=== PATIENT | female | born 1985 | race Caucasian/White ===

== ENCOUNTER 2018-08-04 18:23 | Emergency (ER) | payer OTHER ==
[2018-08-04 18:44] VITALS: BP 115/83
[2018-08-04] MEDS ORDERED: predniSONE 20 MG TABLET PO STA (18:56)
--- NOTE | 2018-08-04 19:36 | ED Physician Documentation ---
History of Present Illness - Stated complaint Stated Complaint: SWOLLEN TONGUE - Chief complaint Chief Complaint: Allergic Rx - History obtained from History obtained from: Patient - History of Present Illness Timing: How many hours ago (2) Pain level max: 0 Pain level now: 0 - Additonal information Additional information: 33-year-old female presents to the emergency department with tongue swelling after eating honey tonight. States took 2 Zyrtec and the swelling has now decreased to normal. No itching. No difficulty breathing or trouble swallowing. Has not had previous allergic reactions like this. Is not , breast-feeding or trying to become . Review of Systems Constitutional: denies: Fever, Chills Respiratory: denies: Cough GI: denies: Vomiting, Diarrhea Skin: denies: Rash Musculoskeletal: denies: Neck pain, Back pain Neurologic: denies: Headache PD PAST MEDICAL HISTORY - Past Medical History Past Medical History: No - Past Surgical History Past Surgical History: No - Present Medications Home Medications: Ambulatory Orders Medication Instructions Recorded Confirmed Cetirizine [ZyrTEC] 08/04/18 Fexofenadine HCl 08/04/18 Topiramate 08/04/18 - Allergies Allergies/Adverse Reactions: Allergies Allergy/AdvReac Type Severity Reaction Status Date / Time azithromycin Allergy Anaphylaxis Verified 08/04/18 18:46 - Living Situation Living Situation: reports: With family Living Arrangement: reports: At home - Social History Does the pt smoke?: No Does the pt have substance abuse?: No PD ED PE NORMAL - Vitals Vital signs reviewed: Yes - General General: Alert and oriented X 3, No acute distress, Well developed/nourished - HEENT HEENT: PERRL, Moist mucous membranes, Pharynx benign, Other (No swelling. Uvula midline. Normal phonation. No trismus) - Neck Neck: Supple, no meningeal sign - Cardiac Cardiac: RRR, Strong equal pulses - Respiratory Respiratory: No respiratory distress, Clear bilaterally - Abdomen Abdomen: Soft, Non tender, Non distended - Derm Derm: Warm and dry, No rash - Neuro Neuro: Alert and oriented X 3 - Psych Psych: Normal mood, Normal affect Results - Vitals Vitals: Vital Signs - 24 hr 08/04/18 18:37 Temperature 37.0 C Heart Rate 81 Respiratory 16 Rate Blood Pressure 115/83 H O2 Saturation 99 Oxygen O2 Source Room air PD MEDICAL DECISION MAKING - ED course Complexity details: considered differential, d/w patient ED course: 33-year-old female with what appears to be a resolving allergic reaction at this time. Given prednisone here. Will continue Zyrtec as needed at home. She is well-appearing, nontoxic. Afebrile. No wheezing or respiratory distress. Patient counseled regarding signs and symptoms for which I believe and urgent re-evaluation would be necessary. Patient with good understanding of and agreement to plan and is comfortable going home at this time This document was made in part using voice recognition software. While efforts are made to proofread this document, sound alike and grammatical errors may occur. Departure - Departure Disposition: 01 Home, Self Care Clinical Impression: Allergic reaction Qualifiers: Encounter type: initial encounter Qualified Code(s): T78.40XA - Allergy, unspecified, initial encounter Condition: Good Instructions: ED Allergic Reaction Local Other Follow-Up: CANDELARIO ROJAS PA-C [Primary Care Provider] - Within 1 week Comments: Return if you worsen. You can take Benadryl or Zyrtec as needed for swelling.
== END 2018-08-04 19:57 | disposition home or self-care (01) ==
LOC: ED 18:23
DX: T78.40XA Allergy, unspecified, initial encounter (principal); X58.XXXA Exposure to other specified factors, initial encounter
CPT/HCPCS: 99283; J7512

== ENCOUNTER 2018-10-31 16:42 | Emergency (ER) | payer OTHER ==
[2018-10-31 19:47] VITALS: BP 123/81
--- NOTE | 2018-10-31 19:51 | ED Physician Documentation ---
PD HPI FEMALE - Stated complaint Stated Complaint: FEMALE - Chief complaint Chief Complaint: Wound - History obtained from History obtained from: Patient - History of Present Illness Timing - onset: How many days ago (3) Timing - duration: Days (3) Timing - details: Gradual onset Associated symptoms: Vaginal pain, Genital sore/lesion (small bump right side labia for 3 days and small one left labia since yesterday. History of Bartholin cysts with treated with meds most of the time. Only one I&D per patient.). 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 : None HEENT: None Psych: None Musculoskeletal: None Derm: None Other Past Medical History: Bartholin cyst - Past Surgical History Past Surgical History: Yes /TEST FACILITY ENGINEER: section, Tubal ligation - Present Medications Home Medications: Ambulatory Orders Medication Instructions Recorded Confirmed Cetirizine [ZyrTEC] 08/04/18 Fexofenadine HCl 08/04/18 Topiramate 08/04/18 Hydrocodone/Acetaminophen [[place] 1 each PO Q6H PRN #12 tablet 10/31/18 5-325 Tablet] Naproxen 375 mg PO BID #20 tablet 10/31/18 Sulfamethox/Trimeth 800/160 1 each PO BID #14 tablet 10/31/18 [Bactrim Ds 800/160] - Allergies Allergies/Adverse Reactions: Allergies Allergy/AdvReac Type Severity Reaction Status Date / Time azithromycin Allergy Anaphylaxis Verified 10/31/18 17:09 honey Allergy Unknown Verified 10/31/18 17:09 - Social History Does the pt smoke?: No Smoking Status: Never smoker Does the pt drink ETOH?: Yes Does the pt have substance abuse?: No - Immunizations Immunizations are current?: Yes - POLST Patient has POLST: No PD ED PE NORMAL - Vitals Vital signs reviewed: Yes - General General: Alert and oriented X 3, No acute distress, Well developed/nourished - Abdomen Abdomen: Soft, Non tender, Non distended - 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 Right mid labia with about 1 cm rounded tender area, firm with minimal fluctuance, and U/S showing small fluid collection. No noted vag discharge but external exam only was done. ) - Back Back: No CVA TTP Results - Vitals Vitals: Vital Signs - 24 hr 10/31/18 10/31/18 17:06 19:46 Temperature 36.8 C Heart Rate 103 H Respiratory 18 Rate Blood Pressure 124/89 H 123/81 H O2 Saturation 100 Oxygen O2 Source Room air PD MEDICAL DECISION MAKING - ED course Complexity details: considered differential (small abscesses, one just 1/2 cm and the other about 1 cm, with only small fluid center on U/S. Can try warm soaks and abx first I think. ), d/w patient Departure - Departure Disposition: 01 Home, Self Care Clinical Impression: Bartholin's gland abscess Condition: Stable Record reviewed to determine appropriate education?: Yes Instructions: ED Bartholins Cyst IandD Prescriptions: Hydrocodone/Acetaminophen [[place] 5-325 Tablet] 1 each PO Q6H PRN #12 tablet PRN Reason: Pain Naproxen 375 mg PO BID #20 tablet Sulfamethox/Trimeth 800/160 [Bactrim Ds 800/160] 1 each PO BID #14 tablet Comments: Warm moist towels periodically a few times a day to the area to help promote drainage from the small cyst cysts and infection. Bactrim antibiotic twice daily for a week. Naproxen anti-inflammatory twice daily for a week. Add Tylenol or pain medicine if needed. Recheck with your primary care if not improved over the next 2-3 days and return sooner if worsening pain or size. At this point I think we can improve them with medication and did not appear to need drainage at this point. Discharge Date/Time: 10/31/18 20:36
[2018-10-31] MEDS ORDERED: NAPROXEN 250 MG TABLET PO STA (20:21)
[2018-10-31] MEDS ORDERED: SULFAMETH/TRIMETH DS 800/160 MG TABLET PO STA (20:21)
[2018-10-31] MEDS ORDERED: HYDROcod/ACETAM 5/325 MG TABLET PO STA (20:21)
== END 2018-10-31 20:36 | disposition home or self-care (01) ==
LOC: ED 16:42
DX: N75.1 Abscess of Bartholin's gland (principal)
CPT/HCPCS: 99283; A9270

== ENCOUNTER 2020-06-28 07:29 | Outpatient (CLI) | payer OTHER ==
--- NOTE | 2020-06-30 11:36 | MRI Report ---
PROCEDURE: Knee LT W/O INDICATIONS: LEFT KNEE PAIN TECHNIQUE: Noncontrast sagittal PD fast spin echo and T2 fast spin echo with fat saturation, sagittal 3-D gradie nt sequence with fat saturation; coronal T1 spin echo and PD fast spin echo with fat saturation, and axial PD fast spin echo with fat saturation through the knee. COMPARISON: None. FINDINGS: Image quality: Diagnostic. Menisci: The medial and lateral menisci demonstrate normal morphology and internal signal. The meni scal root ligaments appear intact. Cruciate ligaments: The anterior and posterior cruciate ligaments appear intact. Medial structures: The medial collateral ligament appears intact. The semimembranosus tendon insert ions appear intact. Visualized portions of the pes anserinus tendons appear normal. No abnormal bur raquel fluid. Lateral structures: The fibular collateral ligament and biceps femoris tendon appear intact. The po pliteal tendon and the meniscofemoral ligaments appear intact. Anterior structures: The quadriceps and patellar tendons appear intact. There is slight lateral tilt of the patella. No femoral trochlear dysplasia or ventral trochlear prominence. There is mild edema within the superolateral aspect of the infrapatellar fat pad. Bones and cartilage: No bone marrow contusions or fractures. There is minimal osteophytosis in the p atellofemoral compartment. There is chondral fissuring with partial-thickness delamination along the lateral patellar facet. Joint space: There is physiologic knee joint fluid. No Kelly?s cyst. Normal appearing synovial pli are incidentally noted. IMPRESSION: 1. Slight lateral tilt of the patella with mild edema in the superolateral aspect of Hoffa's fat pad. 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 2. 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 Reviewed by: Hayes Adair MD on 06/30/2020 11:35 AM PST Approved by: Hayes Adair MD on 06/30/2020 11:35 AM PST Station ID: [id number]
== END 2020-06-28 07:30 | disposition home or self-care (01) ==
LOC: DI 07:29
PROVIDERS: ATTEND Family Medicine
DX: M25.562 Pain in left knee (principal); M22.42 Chondromalacia patellae, left knee